=== PATIENT | female | born 2005 | race Caucasian/White ===

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

== ENCOUNTER 2024-06-24 22:43 | Emergency (ER) | payer MEDICAID, OTHER ==
[~2024-06-24] VITALS: Ht 162.6 cm; Wt 80.9 kg
[~2024-06-24 22:43] MED LIST changes: +IBUP-1492 PO; +[UNRECOGNIZED DRUG - CODE] TP
[2024-06-24 22:48] VITALS: BP 112/65; PULSE 79; RESP 18; TEMP 98.2; O2SAT 98
[2024-06-24 23:33] LABS: BASOPHILS % (AUTO) 0.6 % (0.0-2.0); EOSINOPHILS % (AUTO) 0.6 % (1.0-6.0); HEMOGLOBIN 11.2 g/dL (12.0-16.0); LYMPHOCYTES # (AUTO) 2.8 K/uL (1.0-4.8); LYMPHOCYTES % (AUTO) 29.2 % (22.0-44.0); MEAN CORPUSCULAR HEMOGLOBIN 27.6 pg (26.0-34.0); MEAN CORPUSCULAR HGB CONC 32.9 G/dL (31.0-37.0); MEAN CORPUSCULAR VOLUME 84 fL (80-100); MONOCYTES # (AUTO) 0.7 K/uL (0.1-1.0); NEUTROPHILS % (AUTO) 62.6 % (40.0-70.0); PLATELET COUNT (AUTO) 236 K/uL (150-450); RED BLOOD CELL COUNT(AUTO) 4.05 MIL/uL (4.00-5.20); RED CELL DISTRIBUTION WIDTH 14.6 % (11.5-14.5); WHITE BLOOD COUNT (AUTO) 9.5 K/uL (4.5-11.0)
[2024-06-25 00:23] LABS: ANION GAP 6 mmol/L (8-16); CALCIUM, TOTAL 8.6 mg/dL (8.8-10.5); CARBON DIOXIDE 29 mmol/L (22-29); CHLORIDE 104 mmol/L (98-107); CREATININE 0.78 mg/dL (0.60-1.30); GLOMERULAR FILTR. RATE CALC > 60 mL/min (>60); GLUCOSE,RANDOM 106 mg/dL (70-110); POTASSIUM 3.6 mmol/L (3.5-5.1); SODIUM SERUM 139 mmol/L (136-145); UREA NITROGEN, BLOOD 10 mg/dL (7-18)
[2024-06-25] MEDS: KETOROLAC TROMETHAMINE 30 MG/ML VIAL IM ONE (00:39)
[2024-06-25 01:40] LABS: APPEARANCE,URINE HAZY (CLEAR); BILIRUBIN,URINE NEGATIVE (NEGATIVE); COLOR,URINE YELLOW (YELLOW); GLUCOSE, URINE (UA) NEGATIVE (NEGATIVE); KETONES,URINE TRACE mg/dL (NEGATIVE); LEUKOCYTE ESTERASE ,URINE SMALL (NEGATIVE); OCCULT BLOOD,URINE TRACE (NEGATIVE); PH,URINE 6.5 (5.0-8.0); PROTEIN,URINE TRACE mg/dL (NEGATIVE); SPECIFIC GRAVITIY, URINE 1.027 (1.003-1.030)
[2024-06-25 02:05] LABS: BACTERIA,URINE Few /HPF (None Seen); NITRATE,URINE NEGATIVE (NEGATIVE); RBC,URINE 0-2 /HPF (0-2); SQUAMOUS EPITHELIAL CELL,UR Few /LPF (None Seen); WBC,URINE 0-2 /HPF (0-5)
[2024-06-25] MEDS ORDERED: CEPH-556 PO (02:07)
[2024-06-25] MEDS ORDERED: CEPHALEXIN MONOHYDRATE 500 MG CAPSULE PO ONE (02:15)
== END 2024-06-25 02:18 | disposition home or self-care (01) ==
LOC: EMS 22:43
DX: T83.32XA Displacement of intrauterine contraceptive device, initial encounter (principal); N39.0 Urinary tract infection, site not specified; N83.209 Unspecified ovarian cyst, unspecified side
CPT/HCPCS: 99285; 76856; 80048; 81001; 84703; 85025; 36415; 96372; J1885

== ENCOUNTER 2025-05-05 10:31 | Emergency (ER) | payer MEDICAID ==
[~2025-05-05] VITALS: Ht 162.6 cm; Wt 70.5 kg
[~2025-05-05 10:31] MED LIST changes: +CEPH-556 PO
[2025-05-05 10:33] VITALS: TEMP 98.8
[2025-05-05 10:43] LABS: COVID AG,FIA SOURCE NASAL SWAB
[2025-05-05] MEDS: KETOROLAC TROMETHAMINE 60 MG/2 ML VIAL IM ONE (11:04)
[2025-05-05 11:07] LABS: SARS-COV2 (COVID) ANTIGEN,FIA Negative (Negative)
[2025-05-05 11:09] LABS: INFLUENZA TYPE A NEGATIVE FOR TYPE A (NEGATIVE); INFLUENZA TYPE B NEGATIVE FOR TYPE B (NEGATIVE)
[2025-05-05 11:10] LABS: RAPID GROUP A STREP POSITIVE (NEGATIVE)
[2025-05-05] MEDS: CefTRIAXone SODIUM 1 GM/VIAL IM ONE (12:04)
[2025-05-05] MEDS: LIDOCAINE/PF 1% 2 ML VIAL IM ONE (12:05)
[2025-05-05] MEDS ORDERED: PENI500T2 PO (12:29)
[2025-05-05 12:45] VITALS: BP 122/74; PULSE 89; RESP 18; O2SAT 99
== END 2025-05-05 12:55 | disposition home or self-care (01) ==
LOC: EMS 10:31
DX: J02.0 Streptococcal pharyngitis (principal); Z20.822 Contact with and (suspected) exposure to COVID-19
CPT/HCPCS: 99284; 87426; 87430; 87804; 96372; J1885; J0696; J3490